=== PATIENT | male | born 1970 | race Caucasian/White ===

== ENCOUNTER → 2020-07-14 12:08 | Outpatient (BNVA) | payer OTHER, SELFPAY | PROVIDERS: Family Provider Family Medicine; PCP Family Medicine; Visit Provider Internal Medicine Cardiovascular Disease | DX: I42.9 Cardiomyopathy, unspecified (principal); Z51.81 Encounter for therapeutic drug level monitoring; Z79.899 Other long term (current) drug therapy | CPT/HCPCS: 80053; 84443 ==

== ENCOUNTER 2021-03-04 13:27 | Outpatient (CLI) | payer BC, SELFPAY ==
--- NOTE | 2021-03-04 13:30 | USCV_ITS ---
Jose Simpson Age: 50 Gender: M : 1970 Exam Date: 03/04/2021 13:47 Ordering Phys: Laura Weeks MD ([email or web address]) Technologist: Pretty Oseguera [place] [facility] [place]: Hypertrophic CM , bicuspid AOV BP: 118 / 61 HR: 48 Rhythm: Sinus Technical Quality: Good MEASUREMENTS (Male / Female) Normal Values 2D ECHO LV Diastolic Diameter PLAX 4.1 cm 4.2 - 5.9 / 3.9 - 5.3 cm LV Systolic Diameter PLAX 1.9 cm IVS Diastolic Thickness 1.8 cm 0.6 - 1.0 / 0.6 - 0.9 cm IVS Systolic Thickness 2.3 cm LVPW Diastolic Thickness 0.9 cm 0.6 - 1.0 / 0.6 - 0.9 cm LVPW Systolic Thickness 1.9 cm LVOT Diameter 2.1 cm LV Ejection Fraction 2D Teich 83.7 % LV Ejection Fraction MOD 2C 68.1 % LV Ejection Fraction 2C AL 69.4 % LA Diameter 3.1 cm LA Width 2.7 cm LA Height 5.0 cm RA Width 3.1 cm RA Height 4.4 cm Aorta at Sinotubular Diameter 3.6 cm DOPPLER AV Peak Velocity 130.0 cm/s LVOT Peak Velocity 132.0 cm/s AV Area Cont Eq vti 3.8 cm squared AV Area Cont Eq pk 3.4 cm squared MV Peak Velocity 86.0 cm/s MV Area PHT 2.6 cm squared Mitral E to A Ratio 1.1 MV E' Velocity 39.5 cm/s Mitral E to MV E' Ratio 8.0 Mitral E to LV E' Lateral Ratio 5.9 Mitral E to LV E' Septal Ratio 12.5 TR Peak Velocity 99.3 cm/s TR Peak Gradient 3.9 mmHg Right Atrial Pressure 3.0 mmHg Pulmonary Artery Systolic Pressu 6.9 mmHg PV Peak Velocity 79.0 cm/s RV Acceleration Time 0.2 s RV Ejection Time 0.4 s RV AcT/ET 0.5 FINDINGS Left Ventricle Normal left ventricular cavity size. Increased left ventricular wall thickness. Normal left ventricular systolic function. Left ventricular ejection fraction is estimated at 65%. No regional wall motion abnormalities. Normal diastolic function. Right Ventricle Normal right ventricular size and systolic function. Right ventricular systolic pressure 6.9 mmHg. Right Atrium Normal right atrial size. Left Atrium Mildly increased left atrial size. Mitral Valve Structurally normal mitral valve. Possible mild systolic anterior motion of anterior mitral valve leaflet. No mitral valve stenosis. Mild mitral valve regurgitation. Aortic Valve Bicuspid aortic valve. Resting left ventricular outflow trace gradient of 7 mm Hg (Valsalva not done). No aortic valve stenosis. Trace aortic valve regurgitation. Tricuspid Valve Structurally normal tricuspid valve. Trace tricuspid valve regurgitation. Pulmonic Valve Structurally normal pulmonic valve. No pulmonary valve stenosis. Trace pulmonary valve regurgitation. Pericardium No pericardial effusion. Aorta Normal sized aortic root. Ascending aorta mildly dilated measured at 43 mm. CONCLUSIONS 1. Normal left ventricular cavity size. Increased left ventricular wall thickness (septal >posterior wall). Normal left ventricular systolic function. Left ventricular ejection fraction is estimated at 65%. No regional wall motion abnormalities. Normal diastolic function. 2. Normal right ventricular size and systolic function. 3. Bicuspid aortic valve. Resting left ventricular outflow trace gradient of 7 mm Hg (Valsalva not done). No aortic valve stenosis. Trace aortic valve regurgitation. 4. Ascending aorta mildly dilated measured at 43 mm. 5. Mild mitral valve regurgitation. 6. No significant change when compared to previous echocardiogram dated 07/04/2018. Laura Weeks MD (Electronically Signed) Final Date: 09 March 2021 11:45 S
== END 2021-03-04 13:28 | disposition home or self-care (01) ==
PROVIDERS: PCP Family Medicine; Visit Provider Internal Medicine Cardiovascular Disease
DX: I42.2 Other hypertrophic cardiomyopathy (principal); I08.0 Rheumatic disorders of both mitral and aortic valves
CPT/HCPCS: 93306

== ENCOUNTER → 2021-08-16 16:30 | Outpatient (BNVA) | payer OTHER, SELFPAY | PROVIDERS: PCP Family Medicine; Visit Provider Internal Medicine Cardiovascular Disease | DX: I42.9 Cardiomyopathy, unspecified (principal); Z51.81 Encounter for therapeutic drug level monitoring; Z79.899 Other long term (current) drug therapy; I48.0 Paroxysmal atrial fibrillation | CPT/HCPCS: 80053; 83735; 84443; 85025 ==

== ENCOUNTER 2021-11-14 12:40 | Outpatient (CLI) | payer OTHER, SELFPAY ==
--- NOTE | 2021-11-14 13:06 | XRR_ITS ---
PROCEDURE INFORMATION: Exam: XR Abdomen Exam date and time: 11/14/2021 1:08 PM Age: 51 years old Clinical indication: Left lower quadrant abdominal pain for 2 days. Abnormal urinalysis. Hernia as a child. Assess for renal calculi. TECHNIQUE: Imaging protocol: XR of the abdomen. Views: Frontal supine view of the abdomen. 1 View. COMPARISON: No relevant prior studies available. FINDINGS: Gastrointestinal tract: No evidence of small-bowel obstruction. Intraperitoneal space: There is a small calcification in the right pelvis measuring 3.2 mm. This could represent a phlebolith, bladder stone or distal ureteral stone. No gross free air. Organs: Probable nonobstructive right renal stone. The renal shadows are partially obscured by overlying bowel gas/stool. Bones/joints: No gross acute fracture. XR/XR KUB [id number] IMPRESSION: 1. Small calcification in the right pelvis measuring 3.2 mm. This could represent a phlebolith, bladder stone or distal ureteral stone. 2. Probable nonobstructive right renal stone. 3. The renal shadows are partially obscured by overlying bowel gas/stool. 4. Consider CT to further assess if clinically warranted.
== END 2021-11-14 12:41 | disposition home or self-care (01) ==
PROVIDERS: PCP Family Medicine; Visit Provider Family Medicine
DX: R10.32 Left lower quadrant pain (principal); R93.89 Abnormal findings on diagnostic imaging of other specified body structures
CPT/HCPCS: 74018; 81000; 87086

== ENCOUNTER 2021-11-17 08:33 | Outpatient (CLI) | payer OTHER, SELFPAY ==
[2021-11-17 08:41] VITALS: BMI 31.0
--- NOTE | 2021-11-17 09:00 | ECG_ITS ---
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 Interpretive Statements NAME OF STUDY: TREADMILL STRESS ECHOCARDIOGRAM INDICATION: Hypertrophic Cardiomyopathy PROCEDURE: At the baseline, the patient's blood pressure was 168/97 mmHg, oxygen saturation 94% with a heart rate of 63 bpm. The baseline electrocardiogram showed normal sinus rhythm, normal axis with nonspecific T wave inversion. The patient exercised for 9 minutes on a standard [place] protocol. Patient attained a maximum heart rate of 159 beats per minute(94% of the maximum predicted heart rate) with a blood pressure at the peak exercise of 190/97 mm Hg and oxygen saturation 94%. The EKG at the peak exercise revealed sinus tachycardia with no significant ST-T wave changes. Patient did not have any chest pain or any significant EKG changes with the exercise. The study was terminated due to exertional fatigue and maximal effort. During the recovery phase, there were no new changes. Blood pressure at the end of the recovery phase was 152/67 mm Hg with a heart rate of 89 beats per minute and oxygen saturation 94%. Echocardiographic pictures were taken at the baseline, immediately following the peak exercise and during the recovery phase. CONCLUSION: 1. Normal EKG response to treadmill exercise. 2. No exercise-induced chest pain or cardiac arrhythmia. 3. Excellent exercise tolerance, attained a maximum of 10.2 METs. Maximum VO2 of 35.7 mL/kg/min. 4. Baseline hypertension with normal response to exercise. 5. Please see separate report for the echocardiographic response to exercise. Electronically Signed On 11-28-2021 18:14:35 CDT by Laura Weeks M.D. [id number]
--- NOTE | 2021-11-17 09:01 | USCV_ITS ---
Stress Echo Jose Simpson Age: 51 Gender: M : 1970 Exam Date: 11/17/2021 09:19 Ordering Phys: Laura Weeks MD ([email or web address]) Technologist: Pasha Brasher Exam Location: [facility] – [place] Indication: Hypertrophic Cardiomyopathy Rhythm: Sinus Patient History: Fatigue, HCM Cardiac Medications: Beta demar Medications in past 24 hours: NONE Contrast: Stress Results Protocol: Alton Total dose(mL): Exercise Duration (min:sec): 09:00 METS: 10.2 Resting HR: 63 Resting BP: 168 / 97 Peak HR: 168 Peak BP: 190 / 97 Max Predicted HR: 168 100 % Max Predicted HR Target HR: 143 Double Product: [id number] Stress Summary: The patient's target heart rate was achieved The hemodynamic response to exercise was normal BP Response: Normal Reason for Termination: Test terminated after reaching maximum heart rate Cardiac Symptoms: Short of Breath ECG Analysis Resting ECG: Stress ECG: Arrhythmia: MEASUREMENTS (Male/Female) Normal Values FINDINGS PROCEDURE: At the baseline, the patient's blood pressure was 168/97 mmHg with a heart rate of 63 bpm. The patient exercised for 9 minutes on a standard Al[place] protocol. Patient attained a maximum heart rate of 168 beats per minute(100 % of the maximum predicted heart rate) with a blood pressure at the peak exercise of 190/97 mm Hg. During the recovery phase, there were no new changes. Echocardiographic pictures were taken at the baseline, immediately following the peak exercise and during the recovery phase. Baseline echocardiogram: Normal left ventricular size and systolic function with ejection fraction estimated at 65 %. Severe asymmetric left ventricular hypertrophy (IVSDd= 2.3 cm and LVPWDd= 1.6 cm). No regional wall motion abnormalities. Normal right ventricle size and systolic function. Normal left and right atrial size. Bicuspid aortic valve. Trace to mild mitral regurgitation. No systolic anterior motion of mitral valve. Resting LVOT gradient of 9 mm Hg (1.5 m/s) and with valsalva 26 mm Hg (2.6 m/s) . Post PVC LVOT gradient of 26 mm Hg ( 2.6 m/s). Ascending aorta moderately dilated measured at 46 mm. No pericardial effusion. No intracardiac masses. Peak exercise echocardiogram: Normal augmentation of left ventricular systolic function with exercise. No new regional wall motion abnormalities. Peak exercise LVOT gradient of 49 mm Hg (3.5 m/sec). Recovery echocardiogram: Left ventricular systolic function normalizes. No regional wall motion abnormalities. CONCLUSIONS 1. This is a treadmill stress echocardiogram. 2 Normal left ventricular size and systolic function with ejection fraction estimated at 65 %. Severe asymmetric left ventricular hypertrophy (IVSDd= 2.3 cm and LVPWDd= 1.6 cm). No regional wall motion abnormalities. Bicuspid aortic valve. Trace to mild mitral regurgitation. No systolic anterior motion of mitral valve. 3. Resting LVOT gradient of 9 mm Hg (1.5 m/s) and with valsalva 26 mm Hg (2.6 m/s) . Post PVC LVOT gradient of 26 mm Hg ( 2.6 m/s). Peak exercise LVOT gradient of 49 mm Hg (3.5 m/sec). 4. Ascending aorta moderately dilated measured at 46 mm. 5. Excellent exercise tolerance, attained a maximum of 10.2 [place] [id number]. 6. Baseline hypertension with normal blood pressure and heart rate response to exercise. 7. Normal echocardiographic response to exercise. 8. Normal EKG response to exercise, refer to separate report for details. Laura Weeks MD (Electronically Signed) Final Date: 30 Nov 2021 08:03 S
[2021-11-17 09:53] VITALS: BP 151/62; PULSE 83
== END 2021-11-17 08:34 | disposition home or self-care (01) ==
PROVIDERS: PCP Family Medicine; Visit Provider Nurse Practitioner Family
DX: I42.2 Other hypertrophic cardiomyopathy (principal)
CPT/HCPCS: 93017; 93350